=== PATIENT | female | born 1985 | race African-American/Black ===

== ENCOUNTER 2023-02-04 12:05 | Outpatient (CLI) | payer MEDICAID | END 2023-02-04 12:06 | disposition home or self-care (01) | LOC: CSHMAMMO 12:05 | PROVIDERS: ATTEND Family Medicine | DX: Z12.31 Encounter for screening mammogram for malignant neoplasm of breast (principal); N64.89 Other specified disorders of breast | CPT/HCPCS: 77067 ==

== ENCOUNTER 2023-02-11 12:57 | Outpatient (CLI) | payer MEDICAID | END 2023-02-11 12:58 | disposition home or self-care (01) | LOC: CSHMAMMO 12:57 | PROVIDERS: ATTEND Family Medicine | DX: N63.20 Unspecified lump in the left breast, unspecified quadrant (principal); N60.02 Solitary cyst of left breast | CPT/HCPCS: G0279 ==